=== PATIENT | female | born 1980 ===

== ENCOUNTER 2020-11-16 05:58 | Day surgery (SDC) | payer OTHER | END 2020-11-16 10:10 | disposition home or self-care (01) | LOC: AMB-ENDOS 05:58 | PROVIDERS: ATTEND Surgery | DX: D13.1 Benign neoplasm of stomach (principal); Z20.828 Contact with and (suspected) exposure to other viral communicable diseases; K44.9 Diaphragmatic hernia without obstruction or gangrene ==